=== PATIENT | female | born 1980 | race Caucasian/White ===

== ENCOUNTER 2022-06-12 11:40 | Outpatient (CLI) | payer OTHER, SELFPAY ==
[2022-06-12 12:39] LABS: Basophils Percent Auto 0.7 % (0.2-1.2); Eosinophils Absolute Auto 0.1 K/mm3 (0-0.3); Eosinophils Percent Auto 1.6 % (0-4.4); Hemoglobin 12.7 g/dL (12.0-15.0); Immature Granulocyte Absolute 0.01 K/mm3 (0.00-0.031); Immature Granulocyte Percent A 0.2 % (0-0.5); Lymphocytes Absolute Auto 2.25 K/mm3 (0.9-3.2); Lymphocytes Percent Auto 36.8 % (18.3-44.2); Mean Corpuscular HGB Conc 32.6 g/dl (32-36); Mean Corpuscular Hemoglobin 29.5 pg (26-34); Mean Corpuscular Volume 90.5 fl (80-100); Mean Platelet Volume 10.1 fl (7.4-10.4); Monocytes Absolute Auto 0.4 K/mm3 (0.1-0.6); Monocytes Percent Auto 6.2 % (2.6-8.5); Neutrophils Absolute Auto 3.3 K/mm3 (1.3-6.7); Neutrophils Percent Auto 54.5 % (45.5-73.1); Platelet Count Result 249 k/mm3 (150-375); Red Blood Count 4.31 M/mm3 (4.2-5.4); Red Cell Distribution Width 13.2 % (11.5-14.5); White Blood Count 6.1 K/mm3 (4.5-10.0)
[2022-06-12 12:54] LABS: Alanine Aminotransferase 19 U/L (6-35); Albumin Level 3.9 g/dL (3.5-5.1); Alkaline Phosphatase 79 U/L (38-126); Anion Gap 6 mmol/L (8-16); Aspartate Amino Transferase 19 U/L (14-36); Bilirubin,Total 0.5 mg/dL (0.2-1.3); Blood Urea Nitrogen 11 mg/dL (7-17); Calcium 8.3 mg/dL (8.4-10.2); Carbon Dioxide 25 mmol/L (22-30); Chloride 106 mmol/L (98-107); Cholesterol 147 mg/dL (0-200); Estimated Glomerular Filt Rate > 60; Glucose 84 mg/dL (65-110); HDL Direct 46 mg/dL; Magnesium 2.1 mg/dL (1.6-2.3); Phosphorus 4.2 mg/dL (2.5-4.5); Potassium 3.6 mmol/L (3.4-5.0); Sodium 137 mmol/L (137-145); Triglycerides 71 mg/dL (<150)
[2022-06-12 13:05] LABS: LDL Cholesterol Direct 67 mg/dL
[2022-06-12 13:06] LABS: Parathyroid Intact 49.8 pg/mL (7.5-53.5)
[2022-06-12 13:18] LABS: Hemoglobin A1C 5.6 % (<5.7); Iron 40 ug/dL (37-170)
[2022-06-12 13:27] LABS: Percent Iron Saturation 11 % (20-50)
[2022-06-12 14:17] LABS: Vitamin D 25 Hydroxy 61.7 ng/mL
[2022-06-13 16:24] LABS: Folic Acid 12.5 ng/mL (2.76->20)
[2022-06-14 14:33] LABS: Zinc 65 mcg/dL (60-130)
[2022-06-15 12:01] LABS: Red Blood Cell Folate 487 ng/mL RBC (>280)
[2022-06-16 15:23] LABS: Vitamin B1 16 nmol/L (8-30)
== END 2022-06-12 11:41 | disposition home or self-care (01) ==
PROVIDERS: PCP Internal Medicine; Visit Provider Internal Medicine
DX: E11.9 Type 2 diabetes mellitus without complications (principal); Z98.84 Bariatric surgery status
CPT/HCPCS: 36415; 80053; 80061; 82306; 82607; 82728; 82746; 82747; 83036; 83540; 83550; 83735; 83970; 84100; 84425; 84443; 84630; 85025

== ENCOUNTER 2022-09-27 12:52 | Outpatient (CLI) | payer OTHER, SELFPAY ==
[2022-09-27 13:28] LABS: Basophils Absolute Auto 0.1 K/mm3 (0.0-0.1); Basophils Percent Auto 0.8 % (0.2-1.2); Eosinophils Absolute Auto 0.1 K/mm3 (0-0.3); Eosinophils Percent Auto 1.4 % (0-4.4); Hematocrit 41.6 % (37.0-47.0); Hemoglobin 13.5 g/dL (12.0-15.0); Immature Granulocyte Absolute 0.03 K/mm3 (0.00-0.031); Immature Granulocyte Percent A 0.4 % (0-0.5); Lymphocytes Absolute Auto 2.49 K/mm3 (0.9-3.2); Lymphocytes Percent Auto 32.1 % (18.3-44.2); Mean Corpuscular HGB Conc 32.5 g/dl (32-36); Mean Corpuscular Hemoglobin 29.5 pg (26-34); Mean Corpuscular Volume 90.8 fl (80-100); Mean Platelet Volume 10.6 fl (7.4-10.4); Monocytes Absolute Auto 0.3 K/mm3 (0.1-0.6); Monocytes Percent Auto 4.3 % (2.6-8.5); Neutrophils Absolute Auto 4.7 K/mm3 (1.3-6.7); Platelet Count Result 269 k/mm3 (150-375); Red Blood Count 4.58 M/mm3 (4.2-5.4); Red Cell Distribution Width 12.6 % (11.5-14.5); White Blood Count 7.8 K/mm3 (4.5-10.0)
[2022-09-27 13:45] LABS: Hemoglobin A1C 5.6 % (<5.7)
[2022-09-27 13:51] LABS: Parathyroid Intact 43.7 pg/mL (7.5-53.5)
[2022-09-27 13:57] LABS: Alanine Aminotransferase 24 U/L (6-35); Albumin Level 4.5 g/dL (3.5-5.1); Alkaline Phosphatase 66 U/L (38-126); Anion Gap 7 mmol/L (8-16); Aspartate Amino Transferase 25 U/L (14-36); Bilirubin,Total 0.4 mg/dL (0.2-1.3); Blood Urea Nitrogen 18 mg/dL (7-17); Calcium 8.7 mg/dL (8.4-10.2); Carbon Dioxide 28 mmol/L (22-30); Chloride 103 mmol/L (98-107); Cholesterol 162 mg/dL (0-200); Estimated Glomerular Filt Rate > 60; Glucose 87 mg/dL (65-110); HDL Direct 49 mg/dL; Magnesium 2.2 mg/dL (1.6-2.3); Potassium 4.1 mmol/L (3.4-5.0); Sodium 138 mmol/L (137-145); Triglycerides 106 mg/dL (<150)
[2022-09-27 14:06] LABS: LDL Cholesterol Direct 87 mg/dL
[2022-09-27 14:11] LABS: Vitamin D 25 Hydroxy 70.4 ng/mL
[2022-09-27 14:33] LABS: Iron 71 ug/dL (37-170); Percent Iron Saturation 19 % (20-50)
[2022-09-27 15:00] LABS: Folic Acid 19.3 ng/mL (2.76->20)
== END 2022-09-27 12:53 | disposition home or self-care (01) ==
DX: E11.9 Type 2 diabetes mellitus without complications (principal)
CPT/HCPCS: 36415; 80053; 80061; 82306; 82607; 82728; 82746; 83036; 83540; 83550; 83735; 83970; 84100; 84425; 85025

== ENCOUNTER 2023-01-19 08:16 | Outpatient (CLI) | payer OTHER, SELFPAY ==
--- NOTE | ~2023-01-19 | MM_ITS ---
EXAMINATION: MM screening freda BI w nadir HISTORY: Screening TECHNIQUE: Craniocaudal and mediolateral oblique 3-D tomosynthesis images were obtained and synthetic 2-D images were generated. CAD analysis was submitted and interpreted. COMPARISON: No prior mammogram is available for comparison at this institution. BREAST PARENCHYMAL COMPOSITION: There are scattered areas of fibroglandular density. FINDINGS: There is no evidence of suspicious mass, calcification, or architectural distortion to sugg est malignancy in either breast. There has been no suspicious interval change. IMPRESSION: 1. No mammographic evidence of malignancy. 2. Recommend routine screening mammography in one year. BI-RADS Category 1: Negative Reviewed, dictated and finalized at location A.
== END 2023-01-19 08:17 | disposition home or self-care (01) ==
LOC: ANHIMG 08:18
PROVIDERS: PCP Physician Assistant Medical; Visit Provider Physician Assistant Medical
DX: Z12.31 Encounter for screening mammogram for malignant neoplasm of breast (principal)
CPT/HCPCS: 77063; 77067

== ENCOUNTER 2023-03-05 13:26 | Outpatient (CLI) | payer OTHER, SELFPAY ==
--- NOTE | ~2023-03-05 | US_ITS ---
Pelvic ultrasound. Clinical History: Dyspareunia Technique: Realtime transabdominal and transvaginal scanning of the pelvis was performed. Color flow Doppler and Doppler spectral analysis were performed. Findings: The uterus is anteverted. IUD in satisfactory position. The endometrial stripe has a thickn ess of 7 mm. No focal mass is identified. The right ovary measures 3.3 x 2.0 x 2.1 cm. There is a 1.5 cm probable resolving hemorrhagic right o varian cyst. The left ovary measures 3.1 x 1.3 x 1.3 cm. No significant left ovarian or adnexal mass is seen. Vascular flow present in both ovaries on Doppler spectral analysis. There is no evidence of free fluid in the cul de sac. Impression: 1.5 cm probable resolving hemorrhagic right ovarian cyst. No further follow-up required. IUD in satisfactory position. Reviewed, dictated and finalized at [facility]. UTATOR Impression: 1.5 cm probable resolving hemorrhagic right ovarian cyst. No further follow-up required. IUD in satisfactory position.
== END 2023-03-05 13:27 | disposition home or self-care (01) ==
PROVIDERS: PCP Physician Assistant Medical; Visit Provider Obstetrics & Gynecology
DX: N94.10 Unspecified dyspareunia (principal); Z30.431 Encounter for routine checking of intrauterine contraceptive device
CPT/HCPCS: 76830; 76856

== ENCOUNTER 2023-07-06 09:41 | Outpatient (CLI) | payer OTHER, SELFPAY ==
[2023-07-06 12:45] LABS: Basophils Percent Auto 0.7 % (0.2-1.2); Eosinophils Absolute Auto 0.1 K/mm3 (0-0.3); Eosinophils Percent Auto 1.2 % (0-4.4); Hematocrit 39.5 % (37.0-47.0); Hemoglobin 12.5 g/dL (12.0-15.0); Immature Granulocyte Absolute 0.03 K/mm3 (0.00-0.031); Immature Granulocyte Percent A 0.5 % (0-0.5); Lymphocytes Percent Auto 35.4 % (18.3-44.2); Mean Corpuscular HGB Conc 31.6 g/dl (32-36); Mean Corpuscular Hemoglobin 30.1 pg (26-34); Mean Corpuscular Volume 95.2 fl (80-100); Mean Platelet Volume 11.8 fl (7.4-10.4); Monocytes Absolute Auto 0.2 K/mm3 (0.1-0.6); Monocytes Percent Auto 4.1 % (2.6-8.5); Neutrophils Absolute Auto 3.3 K/mm3 (1.3-6.7); Neutrophils Percent Auto 58.1 % (45.5-73.1); Platelet Count Result 243 k/mm3 (150-375); Red Blood Count 4.15 M/mm3 (4.2-5.4); Red Cell Distribution Width 12.7 % (11.5-14.5); White Blood Count 5.7 K/mm3 (4.5-10.0)
[2023-07-06 12:59] LABS: Alanine Aminotransferase 20 U/L (6-35); Albumin Level 3.8 g/dL (3.5-5.1); Alkaline Phosphatase 45 U/L (38-126); Anion Gap 3 mmol/L (8-16); Aspartate Amino Transferase 34 U/L (14-36); Bilirubin,Total 0.4 mg/dL (0.2-1.3); Blood Urea Nitrogen 15 mg/dL (7-17); Calcium 8.8 mg/dL (8.4-10.2); Carbon Dioxide 28 mmol/L (22-30); Chloride 106 mmol/L (98-107); Cholesterol 132 mg/dL (0-200); Estimated Glomerular Filt Rate > 60; Glucose 86 mg/dL (65-110); HDL Direct 49 mg/dL; Magnesium 2.2 mg/dL (1.6-2.3); Potassium 4.4 mmol/L (3.4-5.0); Sodium 137 mmol/L (137-145); Triglycerides 65 mg/dL (<150)
[2023-07-06 13:10] LABS: LDL Cholesterol Direct 70 mg/dL; Parathyroid Intact 55.2 pg/mL (7.5-53.5); Transferrin 278 mg/dL (206-381)
[2023-07-06 14:04] LABS: Hemoglobin A1C 5.1 % (<5.7)
[2023-07-06 14:05] LABS: Folic Acid 8.4 ng/mL (2.76->20)
[2023-07-06 14:28] LABS: Iron 66 ug/dL (37-170)
[2023-07-06 15:04] LABS: Vitamin D 25 Hydroxy 55.9 ng/mL
[2023-07-12 05:08] LABS: Vitamin B1 10 nmol/L (8-30)
== END 2023-07-06 09:42 | disposition home or self-care (01) ==
PROVIDERS: PCP Physician Assistant Medical; Visit Provider Family Medicine
DX: E11.9 Type 2 diabetes mellitus without complications (principal); D50.9 Iron deficiency anemia, unspecified; K90.9 Intestinal malabsorption, unspecified; Z98.84 Bariatric surgery status
CPT/HCPCS: 36415; 80053; 80061; 82306; 82607; 82728; 82746; 83036; 83540; 83735; 83970; 84425; 84466; 85025

== ENCOUNTER 2023-07-16 11:25 | Outpatient (CLI) | payer OTHER, SELFPAY ==
[2023-07-16 14:42] LABS: Iron 80 ug/dL (37-170)
[2023-07-16 14:53] LABS: Percent Iron Saturation 18 % (20-50)
== END 2023-07-16 11:26 | disposition home or self-care (01) ==
LOC: ANHWCLAB 11:27
PROVIDERS: PCP Physician Assistant Medical; Visit Provider Family Medicine
DX: D50.9 Iron deficiency anemia, unspecified (principal)
CPT/HCPCS: 36415; 83540; 83550

== ENCOUNTER 2024-03-14 08:50 | Outpatient (CLI) | payer OTHER, SELFPAY ==
--- NOTE | ~2024-03-14 | MM_ITS ---
EXAMINATION: MM screening freda BI w nadir HISTORY: Screening mammogram, family history of breast cancer in her mother. TECHNIQUE: Craniocaudal and mediolateral oblique 3-D tomosynthesis images were obtained and synthetic 2-D images were generated. CAD analysis was submitted and interpreted. COMPARISON: 01/19/2023 BREAST PARENCHYMAL COMPOSITION:Dense: The breasts are heterogeneously dense, which may obscure small masses. FINDINGS: No suspicious mass, calcification, or architectural distortion are identified in either josé ast to suggest malignancy. There has been no suspicious interval change. IMPRESSION: No mammographic evidence of malignancy. Recommend routine screening mammography in one year. BI-RADS Category 1: Negative Reviewed, dictated and finalized at location . 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
== END 2024-03-14 08:51 | disposition home or self-care (01) ==
LOC: ANHIMG 08:54
PROVIDERS: PCP Family Medicine; Visit Provider Obstetrics & Gynecology
DX: Z12.31 Encounter for screening mammogram for malignant neoplasm of breast (principal)
CPT/HCPCS: 77063; 77067

== ENCOUNTER 2024-03-21 08:41 | Outpatient (CLI) | payer OTHER, SELFPAY ==
[2024-03-21 18:57] LABS: Basophils Absolute Auto 0.1 K/mm3 (0.0-0.1); Basophils Percent Auto 0.8 % (0.2-1.2); Eosinophils Absolute Auto 0.1 K/mm3 (0-0.3); Eosinophils Percent Auto 1.2 % (0-4.4); Hematocrit 41.8 % (37.0-47.0); Hemoglobin 13.6 g/dL (12.0-15.0); Immature Granulocyte Absolute 0.02 K/mm3 (0.00-0.031); Immature Granulocyte Percent A 0.3 % (0-0.5); Lymphocytes Absolute Auto 1.87 K/mm3 (0.9-3.2); Lymphocytes Percent Auto 31.1 % (18.3-44.2); Mean Corpuscular HGB Conc 32.5 g/dl (32-36); Mean Corpuscular Hemoglobin 30.4 pg (26-34); Mean Corpuscular Volume 93.5 fl (80-100); Mean Platelet Volume 11.3 fl (7.4-10.4); Monocytes Absolute Auto 0.3 K/mm3 (0.1-0.6); Monocytes Percent Auto 5.1 % (2.6-8.5); Neutrophils Absolute Auto 3.7 K/mm3 (1.3-6.7); Neutrophils Percent Auto 61.5 % (45.5-73.1); Platelet Count Result 242 k/mm3 (150-375); Red Blood Count 4.47 M/mm3 (4.2-5.4); Red Cell Distribution Width 12.7 % (11.5-14.5)
[2024-03-21 18:59] LABS: Alanine Aminotransferase 26 U/L (6-35); Albumin Level 4.3 g/dL (3.5-5.1); Alkaline Phosphatase 53 U/L (38-126); Anion Gap 6 mmol/L (4-12); Aspartate Amino Transferase 35 U/L (14-36); Bilirubin,Total 0.8 mg/dL (0.2-1.3); Blood Urea Nitrogen 21 mg/dL (7-17); Calcium 9.1 mg/dL (8.4-10.2); Carbon Dioxide 28 mmol/L (22-30); Chloride 103 mmol/L (98-107); Cholesterol 155 mg/dL (0-200); Estimated Glomerular Filt Rate > 60; Glucose 81 mg/dL (65-110); HDL Direct 60 mg/dL; Magnesium 2.3 mg/dL (1.6-2.3); Phosphorus 3.5 mg/dL (2.5-4.5); Potassium 4.2 mmol/L (3.4-5.0); Sodium 137 mmol/L (137-145); Triglycerides 43 mg/dL (<150)
[2024-03-21 19:11] LABS: LDL Cholesterol Direct 73 mg/dL; Parathyroid Intact 25.8 pg/mL (14.5-75.2); Transferrin 271 mg/dL (206-381)
[2024-03-21 19:23] LABS: Vitamin D 25 Hydroxy 75.8 ng/mL
[2024-03-21 19:49] LABS: Hemoglobin A1C 5.4 % (<5.7)
[2024-03-21 19:54] LABS: Iron 99 ug/dL (37-170); Percent Iron Saturation 27 % (20-50)
[2024-03-21 20:06] LABS: Folic Acid 6.3 ng/mL (2.76->20)
[2024-03-25 11:39] LABS: Vitamin B1 21 nmol/L (8-30)
== END 2024-03-21 08:42 | disposition home or self-care (01) ==
PROVIDERS: Nurse Practitioner Family; PCP Family Medicine; Visit Provider Family Medicine
DX: E11.9 Type 2 diabetes mellitus without complications (principal); D64.9 Anemia, unspecified; D50.9 Iron deficiency anemia, unspecified; Z98.84 Bariatric surgery status
CPT/HCPCS: 36415; 80053; 80061; 82306; 82607; 82728; 82746; 83036; 83540; 83550; 83735; 83970; 84100; 84425; 84466; 85025

== ENCOUNTER 2024-11-07 09:05 | Outpatient (CLI) | payer OTHER, SELFPAY ==
--- OUTSIDE RECORDS SUMMARY | 2024-11-07 09:07 | XMS_ITS | Clinical Summary ---
Author Organization [facility] Address [address] [place] [id number] Care Team Providers Care Machine Icer Name Role Phone Brissa Cox NP Primary Care Provider [phone] Allergies No known active allergies Medications cholecalciferol (VITAMIN D-3) 25 mcg (1,000 unit) tablet Take 1,000 Units by mouth daily Active ergocalciferol (VITAMIN D) 50,000 unit capsule Take 50,000 Units by mouth once a week Active ferrous sulfate 325 mg (65 mg of elemental iron) tablet Take 65 mg of elemental iron by mouth daily with breakfast Active levonorgestreL (MIRENA) IUD 1 each by intrauterine route once Active meloxicam (MOBIC) 15 mg tablet Take 15 mg by mouth daily Active metFORMIN (GLUCOPHAGE) 500 mg tablet Take 500 mg by mouth 2 (two) times a day with meals Active [id number] 25 mg iron-1 mg -400 mg combo pack Take by mouth Ac tive semaglutide (OZEMPIC) 1 mg/dose (4 mg/3 mL) pen injector injection Inject 1 mg under the skin every 7 days Active Active Problems Problem Noted Date Diagnosed Date Pre-operative clearance 10/26/2021 Abnormal EKG 10/26/2021 Surgical History Surgery Date Site/Laterality Comments BLADDER SURGERY 04/30/2018 - 04/29/2019 sling Medical History Medical History Date Comments Obesity Abnormal EKG Iron deficiency GERD (gastroesophageal reflux disease) Sleep apnea Diabetes mellitus (HCC) Hypertension Family History Medical History Relation Name Comments Atrial fibrillation Brother Hyperthyroidism Brother Hyperlipidemia Father Hypertension Father Atrial fibrillation Mother Hyperlipidemia Mother Hypertension Mother bypass Mother cardiac stents Mother Relation Name Status Comments Brother Alive Father Alive Mother Alive Social History Tobacco Use Types Packs/Day Years Used Date Smoking Tobacco: Former Cigarettes Q uit: 2008 Personal Safety Answer Date Recorded Getting School Help Needed Not on file 06/21 Comments Unknown Sex and Gender Information Value Date Recorded Sex Assigned at Not on file 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 Gender Identity Not on file Sexual Orientation Not on file Obstetrics History Last Filed Vital Signs Vital Sign Reading Time Taken Comments Blood Pressure 124/78 10/26/2021 2:30 PM CDT Pulse 80 10/26/2021 2:30 PM CDT Temperature - - Respiratory Rate - - Oxygen Saturation 98% 10/26/2021 2:30 PM CDT Inhaled Oxygen Concentration - - Weight 117.7 kg (259 lb 7.7 oz) 10/26/2021 2:30 PM CDT Height 162.6 cm (5' 4) 10/26/2021 2:30 PM CDT Body Mass Index 44.54 10/26/2021 2:30 PM CDT Plan of Treatment Health Maintenance Due Date Last Done Comments Breast Cancer Screening-Mammogram 1981 Cervical Cancer Screening 1981 Depression Screening 1981 Hepatitis C Screening 1981 Varicella Vaccines (1 of 2 - 13+ 2-dose series) 1994 Hepatitis B Screening 1999 Regular Well Visit/Exam 18-64 1999 Covid-19 Vaccine ( season) 2023 02/04/2021, 01/07/2021 Influenza Vaccine (#1) 2024 , 01/30/2020, 01/27/2013 DTaP/Tdap/Td Vaccine (5 - Td or Tdap) 10/13/2025 10/14/2015, 10/10/2015, 10/10/2015, Additional history exists HPV Vaccines Aged Out No longer eligi ble based on patient's age to complete this topic Pneumococcal vaccine <65 Aged Out No longer eligible based on patient's age to complete this topic Insurance [employer] Care Teams Machine Icer Relationship Specialty [place] [address] [address] [address] PCP - General Nurse Practitioner 10/26/21
--- OUTSIDE RECORDS SUMMARY | 2024-11-07 09:07 | XMS_ITS | Clinical Summary ---
Author Organization [facility] Address [address] [place] [address] Care Team Providers Care Rn Nicu Name Role Phone Kishor Vidal MD Primary Care Provider [phone] Source Comments [facility] [facility],non-owned Affiliates and Associated Physician Practices is amultiple site organization consisting of ambulatory clinics and hospital sitesin [place], [place], [place] and [place]. This disclosure is being madepursuant to the Care Everywhere program and may not contain all information available regarding this patient. Last updated 18.[facility] [facility] Allergies No known active allergies Medications * Be aware that medications may not be up to date on this document. Alwaysverify current medications with the patient. levonorgestrel (MIRENA) 20 MCG/24HR IUD by Intrauterine route as directed Active Multiple Vitamin (MULTIVITAMIN ADULT PO) once daily Bariatric with iron 2 Active calcium citrate TABS tablet Take 2 (two) tablets by mouth 2 times daily Active ferrous sulfate 325 (65 FE) MG tablet Take 1 (one) tablet by mouth once daily Active MICROGESTIN 1-20 MG-MCG tablet TAKE 1 TABLET BY MOUTH ONCE DAILY . TAKE IN A CONTINUOUS MANNER TO SKIP CYCLES 4 Active buPROPion XL 24hr (Wellbutrin-XL) 150 MG tablet Take 1 (one) tablet by mouth once daily 4 Active Active Problems Problem Noted Date Diagnosed Date Morbid obesity 01/23/2022 Family History Medical History Relation Name Comments Diabetes; unknown type Brother Blood Clots Father Diabetes; unknown type Father CAD (Coronary Artery Disease) Maternal Grandfather Cancer Maternal Grandmother CAD (Coronary Artery Disease) Mother Cancer Mother Diabetes; unknown type Mother Relation Name Status Comments Brother Father Maternal Grandfather Maternal Grandmother Mother Social History Tobacco Use Types Packs/Day Years Used Date Smoking Tobacco: Former Cigarettes Q uit: 04/30/2006 Smokeless Tobacco: Never Tobacco Cessation:Counseling Given: Not Answered Alcohol Use Standard Drinks/Week Comments Not Currently 0 (1 standard drink = 0.6 oz pur e alcohol) occ PHQ-2 Answer Date Recorded Patient Health Questionnaire-2 Score 0 01/25/2024 Comments No Sex and Gender Information Value Date Recorded Sex Assigned at Not on file 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 Gender Identity Not on file Sexual Orientation Not on file Last Filed Vital Signs Vital Sign Reading Time Taken Comments Blood Pressure 118/76 01/25/2024 9:00 AM CDT Pulse 65 01/25/2024 9:00 AM CDT Temperature 37.5 C (99.5 F) 01/25/2024 9:00 AM CDT Respiratory Rate 16 01/25/2024 9:00 AM CDT Oxygen Saturation 99% 01/25/2024 9:00 AM CDT Inhaled Oxygen Concentration 21% 01/23/2022 1 0:09 PM CDT Weight 77.2 kg (170 lb 1.6 oz) 01/25/2024 10:00 AM CDT Height 163.8 cm (5' 4.49) 01/25/2024 10:00 AM C DT Body Mass Index 28.76 01/25/2024 10:00 AM CDT Plan of Treatment Upcoming Encounters Date Type Department Care Team (Late st Contact Info) Description 01/23/2025 10:00 AM CDT Clinical Support [facility] [address] [place] [phone] 01/23/2025 10:30 AM CDT Office Visit [facility] [address] [place] [phone] Yomaira Smiley, CHIEF OPERATOR-DERMATOLOGIST [address] [place] [address] Health Maintenance Due Date Last Done Comments HIV SCREENING 1996 HEPATITIS C SCREENING 06/03/1999 DTAP/TDAP/TD VACCINES (1 - Tdap) 2000 HEPATITIS B VACCINE (1 of 3 - 19+ 3-dose series) 2000 PAP SMEAR 2002 MAMMOGRAM 05/08/2021 05/08/2019, 05/08/2019 COVID-19 VACCINE (3 - 2023- season) 2023 02/04/2021, 01/07/2021 DEPRESSION SCREENING 04/30/2024 07/27/2023 INFLUENZA VACCINE (#1) 2024 2, 03/04/2021, 01/30/2020, Additional history exists SCREENING FOR DIABETES 03/26/2027 4, 03/21/2024, 03/21/2024, Additional history exists LIPID TESTING 03/21/2029 03/21/2024, 03/11/2023, 10/26/2021, Additional history exists ZOSTER VACCINE (1 of 2) 2031 HIB VACCINE Aged Out No longer eligi ble based on patient's age to complete this topic HPV VACCINE Aged Out No longer eligi ble based on patient's age to complete this topic MENINGOCOCCAL (Group B) VACCINE SHARED DECISION-MAKING Aged Out No longer eligible based on patient's age to complete this topic MENINGOCOCCAL GROUPS A/C/Y/W VACCINE Aged Out No longer eligible based on patient's age to complete this topic PNEUMOCOCCAL VACCINE Aged Out No long er eligible based on patient's age to complete this topic Procedures Procedure Name Priority Date/Time Associated Diagnosis Comments COMPREHENSIVE METABOLIC PANEL Routine 03/21/2024 Status post laparoscopic sleeve gastrectomy Iron deficiency anemia, unspecified iron deficiency anemia type LIPID PROFILE Routine 03/21/2024 Status post laparoscopic sleeve gastrectomy Iron deficiency anemia, unspecified iron deficiency anemia type from Last 3 Months or Most Recently Relevant to Health Maintenance Results * COMPREHENSIVE METABOLIC PANEL (03/21/2024) Blood BLOOD SPECIMEN / Unknown 03/21/2024 [facility] [place] CHIEF OPERATOR-DERMATOLOGIST LAB - CHEMISTRY O RDERABLES Final Result OTHER LAB * LIPID PROFILE (03/21/2024) Blood BLOOD SPECIMEN / Unknown 03/21/2024 [place] [facility] CHIEF OPERATOR-DERMATOLOGIST LAB - CHEMISTRY O RDERABLES Final Result OTHER LAB from Last 3 Months or Most Recently Relevant to Health Maintenance Insurance [facility] Advance Directives * Full Code (Latest Code Status on File) Date Activated Date Inactivated Comments 01/23/2022 11:21 AM 01/24/2022 3:22 PM Care Teams Rn Nicu Relationship Specialty Start Date End Date Kishor Vidal MD [address] [place] [address] PCP - General Family Medicine 01/25/24
--- OUTSIDE RECORDS SUMMARY | 2024-11-07 09:07 | XMS_ITS | Referral Summary ---
Author Organization [facility] Address [address] [place] [phone] Care Team Providers Care Pigment Pumper Name Role Phone Brissa Cox NP Primary Care Provider [phone] Allergies No known active allergies Medications cholecalciferol [...] (two) times a day with meals Active [id number] 25 mg iron-1 mg -400 mg combo pack Take by mouth Ac tive semaglutide (OZEMPIC) 1 mg/dose (4 mg/3 mL) pen injector injection Inject 1 mg under the skin every 7 days Active Active Problems Problem Noted Date Diagnosed Date Pre-operative clearance 10/26/2021 Abnormal EKG 10/26/2021 Social History Tobacco Use Types Packs/Day Years Used Date Smoking Tobacco: Former Cigarettes Q uit: 2008 Personal Safety Answer Date Recorded Getting School Help Needed Not on file 06/21 Comments Unknown Sex and Gender Information Value Date Recorded Sex Assigned at Not on file 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
[2024-11-07 11:55] LABS: Hematocrit 45.2 % (37.0-47.0); Hemoglobin 14.2 g/dL (12.0-15.0); Immature Granulocyte Percent A 0.4 % (0-0.5); Lymphocytes Absolute Auto 1.28 K/mm3 (0.9-3.2); Mean Corpuscular HGB Conc 31.4 g/dl (32-36); Mean Corpuscular Hemoglobin 29.6 pg (26-34); Mean Corpuscular Volume 94.4 fl (80-100); Nucleated Red Blood Cells Absolute Auto 0.000 K/mm3 (0.0-0.012); Nucleated Red Blood Cells Perc 0.0 % (0.0-0.2); Platelet Count Result 235 k/mm3 (150-375); Red Blood Count 4.79 M/mm3 (4.2-5.4); White Blood Count 5.4 K/mm3 (4.5-10.0)
[2024-11-07 12:13] LABS: Iron 113 ug/dL (37-170)
[2024-11-07 12:30] LABS: Percent Iron Saturation 35 % (20-50)
[2024-11-07 13:00] LABS: Hemoglobin A1C 5.0 % (<5.7)
[2024-11-07 13:19] LABS: Ferritin 158.00 ng/mL (6.24-137)
[2024-11-07 13:22] LABS: Alanine Aminotransferase 23 U/L (6-35); Albumin Level 4.8 g/dL (3.5-5.1); Alkaline Phosphatase 41 U/L (38-126); Anion Gap 12 mmol/L (4-12); Aspartate Amino Transferase 28 U/L (14-36); Bilirubin,Total 0.7 mg/dL (0.2-1.3); Blood Urea Nitrogen 18 mg/dL (7-17); Calcium 9.6 mg/dL (8.4-10.2); Carbon Dioxide 24 mmol/L (22-30); Chloride 104 mmol/L (98-107); Cholesterol 156 mg/dL (0-200); Estimated Glomerular Filt Rate > 60; Glucose 54 mg/dL (65-110); HDL Direct 63 mg/dL; Magnesium 2.0 mg/dL (1.6-2.3); Potassium 4.0 mmol/L (3.4-5.0); Sodium 140 mmol/L (137-145); Thyroid Stimulating Hormone 1.560 uIU/mL (0.465-4.680); Total Protein 8.1 g/dL (6.3-8.2); Triglycerides 70 mg/dL (<150)
[2024-11-07 16:20] LABS: MALB Creatinine Ratio 10.1 mg/g (0-30)
[2024-11-07 17:28] LABS: Vitamin B12 486.0 pg/mL (239-931)
== END 2024-11-07 09:06 | disposition home or self-care (01) ==
LOC: ANHGOSHLAB 09:06
PROVIDERS: PCP Family Medicine; Visit Provider Family Medicine
DX: E11.9 Type 2 diabetes mellitus without complications (principal); Z90.3 Acquired absence of stomach [part of]; E66.9 Obesity, unspecified; R53.83 Other fatigue; I10 Essential (primary) hypertension
CPT/HCPCS: 36415; 80053; 80061; 82043; 82306; 82607; 82728; 82746; 82747; 83036; 83540; 83550; 83735; 84100; 84443; 85025